=== PATIENT | male | born 1985 | race Two or more races ===

== ENCOUNTER 2017-02-19 | Emergency (ER) | payer OTHER ==
[2017-02-19] MEDS ORDERED: HYDROCODON-ACE1 EA16 PO (22:12)
[2017-02-19] MEDS ORDERED: ULTRAM50 M1 PO (22:13)
[2017-02-19] MEDS ORDERED: MOBIC7.5 M2 PO (22:13)
[2017-02-19] MEDS ORDERED: CYCLOBENZAPRINE5 M1 PO (22:14)
== END 2017-02-20 01:07 ==
DX: M54.5 Low back pain (principal); R50.9 Fever, unspecified